=== PATIENT | male | born 1995 | race American Indian/Alaskan Native ===

== ENCOUNTER 2017-08-08 22:33 | Emergency (ER) | payer SELFPAY | END 2017-08-09 01:00 | disposition left against medical advice (07) | LOC: ED 22:33 | DX: R11.10 Vomiting, unspecified (principal); Z53.21 Procedure and treatment not carried out due to patient leaving prior to being seen by health care provider ==

== ENCOUNTER 2018-01-16 16:45 | Emergency (ER) | payer OTHER ==
[2018-01-16 16:52] VITALS: BP 120/83
[2018-01-16] MEDS ORDERED: MOTRIN PO ONE (20:29)
--- NOTE | 2018-01-16 20:35 | Emergency Department Report ---
ED ENT HPI - General Chief complaint: Dental/Oral Stated complaint: TOOTH/JAW PAIN Time Seen by Provider: 01/16/18 19:51 Source: patient Mode of arrival: Ambulatory Limitations: No Limitations - History of Present Illness Initial comments: 22-year-old -[place] male comes in complaining of left lower toothache for 4 years. Patient points that he was seen here year ago for the same issue. Patient reports he has not seen a dentist and has not taken any pain medication prior to coming in. He denies any fever chills or nausea no vomiting. MD complaint: tooth pain Location: tooth # (20) Severity: severe Severity scale (0 -10): 8 Quality: stabbing, aching Consistency: constant Worsens with: eating Context- Dental: history of dental caries, poor dental care Associated Symptoms: gum swelling, toothache - Related Data Previous Rx's Medication Instructions Recorded Last Taken Type HYDROcodone/APAP 10-325 [[place] 1 each PO Q6HR PRN #20 tablet 12/27/13 Unknown Rx 10-325 mg TAB] Lidocaine Viscous 2% [Xylocaine 10 ml MM Q3H PRN #240 ml 12/27/13 Unknown Rx Viscous 2%] Ibuprofen [Motrin 800 MG tab] 800 mg PO Q8HR #30 tablet 01/16/18 Unknown Rx Penicillin Vk [Veetids TAB] 250 mg PO QID #40 tablet 01/16/18 Unknown Rx Allergies Allergy/AdvReac Type Severity Reaction Status Date / Time No Known Allergies Allergy Verified 01/16/18 16:51 ED Dental HPI - General Chief complaint: Dental/Oral Stated complaint: TOOTH/JAW PAIN Time Seen by Provider: 01/16/18 19:51 Source: patient Mode of arrival: Ambulatory Limitations: No Limitations - Related Data Previous Rx's Medication Instructions Recorded Last Taken Type HYDROcodone/APAP 10-325 [[place] 1 each PO Q6HR PRN #20 tablet 12/27/13 Unknown Rx 10-325 mg TAB] Lidocaine Viscous 2% [Xylocaine 10 ml MM Q3H PRN #240 ml 12/27/13 Unknown Rx Viscous 2%] Ibuprofen [Motrin 800 MG tab] 800 mg PO Q8HR #30 tablet 01/16/18 Unknown Rx Penicillin Vk [Veetids TAB] 250 mg PO QID #40 tablet 01/16/18 Unknown Rx Allergies Allergy/AdvReac Type Severity Reaction Status Date / Time No Known Allergies Allergy Verified 01/16/18 16:51 ED Review of Systems ROS: Stated complaint: TOOTH/JAW PAIN Other details as noted in HPI Comment: All other systems reviewed and negative ENT: dental pain ED Past Medical Hx - Past Medical History Previous Medical History?: No - Surgical History Past Surgical History?: No - Social History Smoking Status: Never Smoker Substance Use Type: None - Medications Home Medications: Home Medications Medication Instructions Recorded Confirmed Last Taken Type HYDROcodone/APAP 10-325 [[place] 1 each PO Q6HR PRN #20 tablet 12/27/13 Unknown Rx 10-325 mg TAB] Lidocaine Viscous 2% [Xylocaine 10 ml MM Q3H PRN #240 ml 12/27/13 Unknown Rx Viscous 2%] Ibuprofen [Motrin 800 MG tab] 800 mg PO Q8HR #30 tablet 01/16/18 Unknown Rx Penicillin Vk [Veetids TAB] 250 mg PO QID #40 tablet 01/16/18 Unknown Rx ED Physical Exam - General Limitations: No Limitations - Head Head exam: Present: atraumatic, normocephalic - Eye Eye exam: Present: EOMI - Expanded ENT Exam Expanded Teeth exam: Present: dental caries, dental tenderness # (20), gingival enlargement - Neck Neck exam: Present: full ROM. Absent: lymphadenopathy ED Course Vital Signs 01/16/18 16:51 Temperature 99.1 F Pulse Rate 79 Respiratory 16 Rate Blood Pressure 120/83 O2 Sat by Pulse 98 Oximetry Critical care attestation.: If time is entered above; I have spent that time in minutes in the direct care of this critically ill patient, excluding procedure time. ED Disposition Clinical Impression: Tooth abscess Disposition: DC- TO HOME OR SELFCARE Is pt being admited?: No Does the pt Need Aspirin: No Condition: Stable Instructions: Dental Abscess (ED) Additional Instructions: These take antibiotics as prescribed. Pain medication as needed. It is very important for you to follow up with a dentist. This is been going on for several years this needs to be taken care of to continue with good health. Prescriptions: Ibuprofen [Motrin 800 MG tab] 800 mg PO Q8HR #30 tablet Penicillin Vk [Veetids TAB] 250 mg PO QID #40 tablet Referrals: PRIMARY CARE, [Primary Care Provider] - 3-5 Days [facility] [Provider Group] - 3-5 Days [facility] [Outside] - 3-5 Days [facility] [Outside] - 3-5 Days Forms: Work/School Release Form(ED)
== END 2018-01-16 21:00 | disposition home or self-care (01) ==
LOC: ED 16:45
DX: K04.7 Periapical abscess without sinus (principal)
CPT/HCPCS: 99282